=== PATIENT | male | born 1950 | race Caucasian/White ===

== ENCOUNTER 2025-03-07 17:51 | Emergency (ER) | payer MEDICARE ==
[~2025-03-07] VITALS: Ht 185.4 cm; Wt 95.2 kg
[2025-03-07 19:11] LABS: Anion Gap 7.0 mmol/L (3-11); Blood Urea Nitrogen 15.0 mg/dL (8-24); C-REACTIVE PROTEIN, EXT RANGE 0.414 mg/dL (0.000-0.300); CO2, Blood 28.0 mmol/L (21-32); Calcium, Blood 8.9 mg/dL (8.5-10.1); Chloride, Blood 104.0 mmol/L (98-108); Creatinine, Blood 0.8 mg/dL (0.60-1.20); Glucose, Blood 114.0 mg/dL (70-99); Potassium, Blood 3.4 mmol/L (3.5-5.5); Sodium, Blood 136.0 mmol/L (136-145)
[2025-03-07] MEDS ORDERED: Amiodarone HCl 450 MG in NS 250 ML IV SCH (19:30)
[2025-03-07 19:32] LABS: Automated CSF RBC Count 0.006 M/mm3 (0-0); Automated CSF WBC Count 0.022 K/mm3 (0-5); RBC Count, CSF 6000 /mm3 (0-0); WBC Count, CSF 22 /mm3 (0-5)
[2025-03-07 19:51] LABS: Automated CSF WBC Count 0.012 K/mm3 (0-5)
[2025-03-07 19:54] LABS: WBC Count, CSF 12 /mm3 (0-5)
[2025-03-07 20:40] LABS: RBC Count, CSF 226 /mm3 (0-0)
[2025-03-07 20:45] LABS: BASOPHILS ABSOLUTE AUTO 0.03 K/mm3 (0.00-0.23); BASOPHILS PERCENT AUTO 0 % (0-2); EOSINOPHILS ABSOLUTE AUTO 0.03 K/mm3 (0.00-0.68); EOSINOPHILS PERCENT AUTO 0 % (0-6); Hematocrit 37.4 % (37.0-53.0); Hemoglobin 12.8 g/dL (13.5-17.5); IMMATURE GRAN ABSOLUTE AUTO 0.02 K/mm3 (0.00-0.10); IMMATURE GRAN PERCENT AUTO 0 % (0-1); LYMPHOCYTES ABSOLUTE AUTO 0.84 K/mm3 (0.84-5.20); LYMPHOCYTES PERCENT AUTO 12 % (21-46); MONOCYTES ABSOLUTE AUTO 0.71 K/mm3 (0.16-1.47); MONOCYTES PERCENT AUTO 10 % (4-13); Mean Corpuscular HGB Conc 34.2 g/dL (31.5-36.5); Mean Corpuscular Volume 92 fL (80-100); NEUTROPHILS ABSOLUTE AUTO 5.23 K/mm3 (1.96-9.15); NEUTROPHILS PERCENT AUTO 76 % (41-73); NRBC ABSOLUTE 0.00 K/mm3 (0.00-0.02); NRBC Auto 0.0 /100 WBC (0.0-0.2); Platelet Count 218 K/mm3 (150-400); RDW Coefficient Variation 11.8 % (11.7-14.2); RDW Standard Deviation 40.0 fL (35.1-46.3)
[2025-03-07 21:20] LABS: Haemophilus Influenza Not Detected (NOT DETECT)
[2025-03-07] MEDS ORDERED: DOXY100 PO (21:40)
[2025-03-10 14:07] LABS: B. BURGDORFERI IGG IMMUNOBLOT Negative (Negative); B. BURGDORFERI IGM IMMUNOBLOT Positive (Negative)
[2025-03-11 13:24] LABS: LYME EIA IGG 3.55 IV (<=0.90); LYME EIA IGM 4.32 IV (<=0.90); LYME MODIFIED 2-TIER INTERP Positive (Negative); LYME VLSE1/PEPC10 ABS, ELISA 5.89 IV (<=0.90)
== END 2025-03-07 21:55 | disposition left against medical advice (07) ==
LOC: ER 17:51
PROVIDERS: Emergency Medicine
DX: G51.0 Bell's palsy (principal); R21 Rash and other nonspecific skin eruption
CPT/HCPCS: 36415; 62270; 80048; 82945; 84157; 85025; 85651; 86140; 86617; 86618; 86618-59; 87040; 87070; 87205; 87483; 89051; 93005; 93010; 99284-25; A9270; J0282; J7050